=== PATIENT | female | born 1935 | race Caucasian/White ===

== ENCOUNTER 2016-12-30 08:08 | Day surgery (SDC) | payer MEDICARE, BC ==
[~2016-12-30 08:08] MED LIST: Buffered Lidocaine 0.9% SYRIN* 5 ML/SYR SYRINGE INTRADERM ONE
[2016-12-30] MEDS ORDERED: fentaNYL* 50 MCG/ML 2 ML VIAL (100 MCG VIAL) ONE (08:56)
[2016-12-30] MEDS ORDERED: Propofol* 10 MG/ML 20 ML BTL IV PUSH ONE (08:57)
[2016-12-30] MEDS ORDERED: Midazolam* 1 MG/ML 2 ML VIAL (2 MG) ONE (08:57)
[2016-12-30] MEDS ORDERED: Bupivacaine 0.25% SDV* 30 ML ONE (09:49)
[2016-12-30 11:06] VITALS: BP 123/76
--- NOTE | 2016-12-31 07:33 | OP ---
DATE OF OPERATION: 12/30/16 - [facility] DATE OF : 35 SURGEON: Gwyn Moeller MD PRICER BAGGER: INGA Donnelly ANESTHESIOLOGIST: Dr. Roland. ANESTHESIA: Local MAC PRE-OP DIAGNOSIS: Left carpal tunnel syndrome. POST-OP DIAGNOSIS: Left carpal tunnel syndrome. OPERATIVE PROCEDURE: Left open carpal tunnel release. INDICATIONS: Katie is an 81-year-old female with severe left carpal tunnel disease including severe atrophy. She has been to the point where she was having difficulty holding objects due to the loss of sensation. She was frequently dropping things. We had talked about risks and benefits. She wanted to proceed with left carpal tunnel release. She understands that she is likely to have incomplete recovery of the sensation and will probably have some increased burning and tingling initially. She also understands, she is unlikely to have reversal of the atrophy. ESTIMATED BLOOD LOSS: 2 mL. COMPLICATIONS: None. FINDINGS: As expected, severely flattened median nerve just at the level of the wrist flexion crease. DESCRIPTION OF PROCEDURE: Katie was seen in the preoperative holding area. The correct side, site, and procedure were identified. We came back to the operating room where she got some anesthesia, we had a timeout and I infiltrated the operative area with 0.25% plain Marcaine. I then prepped and draped the arm in the usual fashion and formal timeout was performed. I began by making 2 to 3 cm incision in standard location for an open carpal tunnel release. Dissection was carried down through subcutaneous tissue and the palmar fascia to expose the transverse carpal ligament. This was released from distal to proximal just off the radial aspect of the hook of the hamate. When I got to the wrist flexion crease, I released the subcutaneous tissue and placed a Belle retractor to retract this volarly and ulnarly. I then used the tenotomy scissors to release the remainder of the transverse carpal ligament and the distal antebrachial fascia just off the ulnar aspect of the palmaris longus tendon to a level of several centimeters proximal to the wrist flexion crease. I then released some more palmar fascia distally. Once there was absolutely no compression on the nerve, I went ahead and irrigated out the wound and skin was closed with 4-0 suture. Wound was dressed with Xeroform, 4x4s, sterile Webril, and an Sonido bandage. The tourniquet was deflated. The hand pinked up immediately. The arm had been exsanguinated with Esmarch and the tourniquet inflated to 250 mmHg prior to making skin incision. She was then taken to recovery room in stable condition. [id number]/[facility] #: [id number] [place]
== END 2016-12-30 11:08 | disposition home or self-care (01) ==
LOC: OREAST 08:08
PROVIDERS: ATTEND Orthopaedic Surgery Hand Surgery
DX: G56.02 Carpal tunnel syndrome, left upper limb (principal); Z79.82 Long term (current) use of aspirin; Z88.1 Allergy status to other antibiotic agents; Z88.0 Allergy status to penicillin; I10 Essential (primary) hypertension; J45.909 Unspecified asthma, uncomplicated
CPT/HCPCS: J2250; J2704; J3010

== ENCOUNTER 2019-01-05 08:16 | Emergency (ER) | payer MEDICARE, BC ==
--- OUTSIDE RECORDS SUMMARY | 2019-01-05 08:28 | XMS REPORT | Continuity of Care Document ---
:1935 External Reference #:[id number] Author Name JENNIFER Callaway Address [address] [place] [address] Care Team Providers Name Role Phone Rossana Rivas D.K., M.D. Care Team Information Directional Survey Drafter Unavailable Kylah Vizcarra MD Primary Care Physician Unavailable Payers Date Identification Numbers Payment Provider Subscriber Effective: Policy Number: [id number] Medicare-National Katie Gerber 2002 GVT.Sys PayID: [id number] [address] [place] [address] Effective: 2006 Policy Number: [facility] Katie Gerber [id number] Group Number: [id number] [address] Group Name: [place] [address] PayID: [id number] Problems Active Problems Provider Date Allergic asthma without status asthmaticus Rossana Rivas M.D. Onset: 2013 Allergic rhinitis due to pollen Rossana Rivas M.D. Onset: 07/18/2013 Allergic rhinitis Rossana Rivas M.D. Onset: 07/18/2013 Atopic dermatitis Rossana Rivas M.D. Onset: 07/18/2013 Toxic effect of venom Rossana Rivas M.D. Onset: 07/18/2013 Uncomplicated moderate persistent asthma Rossana Rivas M.D. Onset: 2014 Uncomplicated moderate persistent asthma JENNIFER Callaway Onset: 2016 Toxic effect of venom of bees, accidental JENNIFER Callaway Onset: 01/03 (unintentional), subsequent encounter Family History Date Family Member(s) Observation Comments General Seasonal Allergies General Bronchitis General Heart Disease General Hypertension General Nasal Polyps General sinus disorders Father Seasonal Allergies Father Bronchitis Father Heart Disease Father Nasal Polyps Father Sinus Disorders Mother Hypertension First Sister Seasonal Allergies Social History Type Date Description Comments Sex Unknown Marital Status Legal Status: Lives With Alone Home Environment Uses air beaming inspector Home Environment Has a window air conditioner Home Environment Stairs are present Home Environment Unfinished Basement Home Environment The basement is damp Home Environment Cotton Comforter Home Environment Regular Mattress Home Environment Mattress is 5 years old Home Environment Mattress is encased in an allergy proof case Home Environment Pillows are encased in an allergy proof case Home Environment Pillows are polyester Home Environment Does not use a has a yoruba drain dehumidifier Home Environment There are draperies in the home Home Environment The home is minoo Home Environment The floors are wood in [place], area rug Home Environment The floors are carpeted Home Environment Uses oil heating Home Environment Uses wood heating Home Environment [place] Home Environment Water Source: Well Smoke-Free Home is smoke-free Smoke-Free Work is smoke-free Pets 2 dogs Present 9 years and 2 years, allowed in [place] Pets Bird Pets Horse 2 at the house, some in [place] Pets Animals sleep in bedroom 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 2units Janice 12/31/2016 0.3mg/0.3ML im. JENNIFER Johnson Solution Auto-Inject Xopenex HFA 2 inhalations 1units J30.1 Janice 08/08/2013 45mcg/Act every 4 to 6 hours Uldrich, SOLAR SALES REPRESENTATIVE AND ASSESSOR-C Aerosol as needed, or 30 min prior to exercise. use with spacer Symbicort inhale two puffs 30.6gm J45.40 Janice 08/08/2013 by mouth every Uldrich, SOLAR SALES REPRESENTATIVE AND ASSESSOR-C 160-4.5mcg/Act morning and 2 Aerosol puffs at night - rinse mouth well after use Optichamber Advantage use with all 1units J45.40 Rossana Rivas, 07/18/2013 inhalers [facility] [place] apply topically 1units J45.40 Janice 07/18/2013 0.03% Ointment two times a day to Uldrich, SOLAR SALES REPRESENTATIVE AND ASSESSOR-C affected areas of eyelids Optivar instill 1-2 drops 18ml Janice 0.05% Solution every 12 hours in Uldrich, SOLAR SALES REPRESENTATIVE AND ASSESSOR-C each eye Coenzyme Q10 one tab daily Unknown 200mg Capsules Metoprolol Succinate twice daily Unknown ER 25mg Tablets ER 24HR Osteo Bi-Flex 1 po qd Unknown Advanced Triple Strength Tablets Franci-C 1 po qd Unknown 1000mg Tablets Calcium 500/Vitamin 1 po qd Unknown D3 [id number] Tablets B Complex 1 po qd Unknown Capsules Centrum Silver 1 po qd Unknown Tablets Fish Oil Concentrate one by mouth 2 Unknown times a day 1400mg Capsules Immodium Unknown Cholestyramine 1 po qd Unknown 4gm Packet Amlodipine Besylate 1 po qd Unknown 5mg Tablets Aspirin 1 po qd Unknown 81mg Tablets DR Lipitor 1 po qd Unknown 20mg Tablets Zoloft 1 po qd Unknown 50mg Tablets Zovirax aaa prn for Unknown 5% Cream shingles or herpes outbreak Nasonex spray two sprays 17units Janice 50mcg/Act in each nostril Uldrich, SOLAR SALES REPRESENTATIVE AND ASSESSOR-C Suspension every day Jannet Allergy 1 po qd 30tabs Unknown 180mg Tablets Immunizations CPT Code Status Date Vaccine Lot # 48381 Given 04/10/2014 Influenza Vaccine 49624 Given Unknown Pneumococcal Vaccine 23911 Given Unknown Influenza Vaccine 32781 Given Unknown Influenza Vaccine 98768 Given Unknown Influenza Vaccine 66919 Given Unknown Influenza Vaccine Vital Signs Date Vital Result Comment 12/18/2018 10:21am Height 63 inches 5'3" Weight 138.00 lb Weight 62.597 kg Respiratory Rate 16 /min Heart Rate 86 /min O2 % BldC Oximetry 98 % BP Systolic 147 mmHg BP Diastolic 103 mmHg Asthma Control Test 14 BMI (Body Mass Index) 24.4 kg/m2 06/23/2018 10:27am Height 63 inches 5'3" Weight 140.00 lb Weight 63.504 kg Respiratory Rate 21 /min Heart Rate 55 /min O2 % BldC Oximetry 97 % BP Systolic 128 mmHg BP Diastolic 75 mmHg Asthma Control Test 21 Fractional Exhaled Nitric Oxide 17 BMI (Body Mass Index) 24.8 kg/m2 12/15/2017 1:21pm Height 63 inches 5'3" Weight 136.00 lb Weight 61.690 kg Respiratory Rate 18 /min Heart Rate 62 /min O2 % BldC Oximetry 98 % BP Systolic 135 mmHg BP Diastolic 79 mmHg Asthma Control Test 23 BMI (Body Mass Index) 24.1 kg/m2 07/14/2017 1:33pm Height 63 inches 5'3" Weight 136.00 lb Weight 61.690 kg Respiratory Rate 18 /min Heart Rate 68 /min O2 % BldC Oximetry 99 % BP Systolic 147 mmHg BP Diastolic 86 mmHg BMI (Body Mass Index) 24.1 kg/m2 01/03/2017 12:01pm Height 63 inches 5'3" Weight 136.00 lb Weight 61.690 kg Respiratory Rate 20 /min Heart Rate 72 /min O2 % BldC Oximetry 97 % BP Systolic 131 mmHg BP Diastolic 64 mmHg Asthma Control Test 20 BMI (Body Mass Index) 24.1 kg/m2 06/14/2016 10:28am Height 63 inches 5'3" Weight 135.00 lb Weight 61.236 kg Respiratory Rate 18 /min Heart Rate 59 /min O2 % BldC Oximetry 98 % BP Systolic 144 mmHg BP Diastolic 76 mmHg Asthma Control Test 16 BMI (Body Mass Index) 23.9 kg/m2 04/12/2016 8:39am Height 63 inches 5'3" Weight 137.00 lb Weight 62.143 kg Respiratory Rate 16 /min Heart Rate 57 /min O2 % BldC Oximetry 98 % BP Systolic 121 mmHg BP Diastolic 63 mmHg Asthma Control Test 19 BMI (Body Mass Index) 24.3 kg/m2 12/31/2015 11:31am Height 63 inches 5'3" Weight 132.00 lb Weight 59.875 kg Respiratory Rate 16 /min Heart Rate 58 /min O2 % BldC Oximetry 97 % BP Systolic 123 mmHg BP Diastolic 70 mmHg Asthma Control Test 17 BMI (Body Mass Index) 23.4 kg/m2 05/28/2015 11:43am Height 63 inches 5'3" Weight 129.00 lb Weight 58.514 kg Respiratory Rate 20 /min Heart Rate 61 /min O2 % BldC Oximetry 98 % BP Systolic 131 mmHg BP Diastolic 71 mmHg Asthma Control Test 23 BMI (Body Mass Index) 22.8 kg/m2 11/27/2014 11:34am Height 63 inches 5'3" Weight 125.00 lb Weight 56.700 kg Respiratory Rate 18 /min Heart Rate 61 /min O2 % BldC Oximetry 98 % BP Systolic 120 mmHg BP Diastolic 76 mmHg Asthma Control Test 20 BMI (Body Mass Index) 22.1 kg/m2 05/29/2014 3:09pm Height 63 inches 5'3" Weight 124.00 lb Weight 56.246 kg Respiratory Rate 18 /min Heart Rate 74 /min O2 % BldC Oximetry 98 % BP Systolic 120 mmHg BP Diastolic 80 mmHg Asthma Control Test 23 BMI (Body Mass Index) 22.0 kg/m2 12/07/2013 1:37pm Height 63 inches Weight 131.00 lb Weight 59.422 kg Respiratory Rate 14 /min Heart Rate 64 /min O2 % BldC Oximetry 98 % BP Systolic 114 mmHg BP Diastolic 69 mmHg Asthma Control Test 20 BMI (Body Mass Index) 23.2 kg/m2 11/26/2013 1:50pm Height 63 inches 5'3" Weight 131.00 lb Weight 59.422 kg Respiratory Rate 16 /min Heart Rate 61 /min O2 % BldC Oximetry 98 % BP Systolic 126 mmHg BP Diastolic 70 mmHg Asthma Control Test 20 BMI (Body Mass Index) 23.2 kg/m2 08/08/2013 2:51pm Height 63 inches 5'3" Weight 131.00 lb Weight 59.422 kg Respiratory Rate 16 /min Heart Rate 71 /min O2 % BldC Oximetry 97 % BP Systolic 130 mmHg BP Diastolic 82 mmHg Asthma Control Test 20 BMI (Body Mass Index) 23.2 kg/m2 07/18/2013 1:30pm Height 63 inches 5'3" Weight 131.00 lb Weight 59.422 kg Respiratory Rate 14 /min Heart Rate 72 /min O2 % BldC Oximetry 98 % BP Systolic 149 mmHg BP Diastolic 86 mmHg BMI (Body Mass Index) 23.2 kg/m2 Procedures Date Code Description Status 12/18/2018 19787 Pre PFT Completed 06/23/2018 63047 Nitric Oxide Gas Determination Completed 06/23/2018 84738 Pre PFT Completed 12/15/2017 41417 Pre PFT Completed 07/14/2017 38908 Pre PFT Completed 01/03/2017 54700 Pre PFT Completed 06/14/2016 74548 Pre PFT Completed 04/12/2016 60656 Pulmonary Function Test Completed 12/31/2015 22644 Pre PFT Completed 05/28/2015 20476 Pre PFT Completed 11/27/2014 28722 Pulmonary Function Test Completed 05/29/2014 22149 Pre PFT Completed 12/07/2013 28606 Pre PFT Completed 07/18/2013 52014 Pulmonary Function Test Completed Encounters Type Date Location Provider Dx Diagnosis Office Visit 12/18/2018 Alberto Santos45.40 Moderate persistent 10:00a SOLAR SALES REPRESENTATIVE AND ASSESSOR-C asthma, uncomplicated J30.2 Other seasonal allergic rhinitis J30.89 Other allergic rhinitis Office Visit 06/23/2018 10:20a Alberto Santos45.40 Moderate persistent SOLAR SALES REPRESENTATIVE AND ASSESSOR-C asthma, uncomplicated J30.2 Other seasonal allergic rhinitis J30.89 Other allergic rhinitis 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, accidental, subs J30.1 Allergic rhinitis due to pollen Office Visit 12/15/2017 1:20p Alberto Santos45.40 Moderate persistent SOLAR SALES REPRESENTATIVE AND ASSESSOR-C asthma, uncomplicated J30.2 Other seasonal allergic rhinitis J30.89 Other allergic rhinitis 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, accidental, subs Office Visit 07/14/2017 1:40p Alberto Santos45.40 Moderate persistent SOLAR SALES REPRESENTATIVE AND ASSESSOR-C asthma, uncomplicated J30.1 Allergic rhinitis due to pollen J30.2 Other seasonal allergic rhinitis J30.89 Other allergic rhinitis 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, accidental, subs B37.9 Candidiasis, unspecified Office Visit 01/03/2017 11:40a [place] Johnson, J45.40 Moderate persistent SOLAR SALES REPRESENTATIVE AND ASSESSOR-C asthma, uncomplicated J30.1 Allergic rhinitis due to pollen J30.2 Other seasonal allergic rhinitis J30.89 Other allergic rhinitis 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, accidental, subs Z68.24 Body mass index (BMI) 24.0-24.9, adult Office Visit 06/14/2016 10:00a [place] Reyes J45.40 Moderate persistent SOLAR SALES REPRESENTATIVE AND ASSESSOR-C asthma, uncomplicated J30.1 Allergic rhinitis due to pollen J30.2 Other seasonal allergic rhinitis J30.89 Other allergic rhinitis Z68.23 Body mass index (BMI) 23.0-23.9, adult Office Visit 04/12/2016 9:00a [place] Vega Erasmo, Z68.24 Body mass index (BMI) RPA-C 24.0-24.9, adult J45.40 Moderate persistent asthma, uncomplicated J30.1 Allergic rhinitis due to pollen J30.2 Other seasonal allergic rhinitis J30.89 Other allergic rhinitis Z23 Encounter for immunization Office Visit 12/31/2015 11:40a [place] Rivera J45.40 Moderate persistent M.D. asthma, uncomplicated J30.1 Allergic rhinitis due to pollen J30.2 Other seasonal allergic rhinitis J30.89 Other allergic rhinitis Z68.23 Body mass index (BMI) 23.0-23.9, adult Z23 Encounter for immunization Office Visit 05/28/2015 11:20a Alberto Esqueda45.40 Moderate persistent M.D. asthma, uncomplicated J30.1 Allergic rhinitis due to pollen J30.2 Other seasonal allergic rhinitis J30.89 Other allergic rhinitis Z23 Encounter for immunization Z68.22 Body mass index (BMI) 22.0-22.9, adult Office Visit 11/27/2014 11:40a Rico Rivas M.D. 493.00 Asthma Extrinsic Unspecified 477.0 Rhinitis Allergic Due To Pollen 477.8 Rhinitis Allergic Due To Other Allergen 989.5 Toxic Effect Of Venom V03.82 Streptococcus Pneumoniae Vaccination Spec Other V85.1 Body Mass Index Between 19-24 Adult Office Visit 05/29/2014 3:20p Rico Rivas M.D. 493.00 Asthma Extrinsic Unspecified 477.0 Rhinitis Allergic Due To Pollen 477.8 Rhinitis Allergic Due To Other Allergen 989.5 Toxic Effect Of Venom Office Visit 11/26/2013 1:40p [place] Zimmerman, 477.0 Rhinitis Allergic Due RPA-C To Pollen 477.8 Rhinitis Allergic Due To Other Allergen 493.00 Asthma Extrinsic Unspecified 691.8 Dermatitis Atopic & Related Conditions Other 989.5 Toxic Effect Of Venom Office Visit 08/08/2013 3:00p Rico Chapin, 477.0 Rhinitis Allergic SOLAR SALES REPRESENTATIVE AND ASSESSOR-C Due To Pollen 493.00 Asthma Extrinsic Unspecified Office Visit 07/18/2013 1:20p Rico Rivas M.D. 493.00 Asthma Extrinsic Unspecified 477.0 Rhinitis Allergic Due To Pollen 477.8 Rhinitis Allergic Due To Other Allergen 691.8 Dermatitis Atopic & Related Conditions Other 989.5 Toxic Effect Of Venom Plan of Treatment Future Appointment(s):06/22/2019 10:00 am - JENNIFER Callaway at [id number] - KATHY Callaway-CJ45.40 Moderate persistent asthma, hyykqmrthzyspS88.2 Other seasonal allergic wxjxdgqlX43.89 Other allergic rhinitisRecommendations:Continue all medications as prescribed.Refrain from wearing perfumes/scented colognes while visitingour office. Continue the Symbicort 1 puff twice a day Continue the Jannet 1 daily, May re dose Continue the Nasonex 2 sprays each nostril daily Continue the Xopenex 2 puffs every 4 hours as needed for cough, shortness of breath, wheezing and chest congestion.Monitor Albuterol use. If using more than 2x/week, please call the office as your asthma medications may need to be adjusted. PFT done today. Pulmonary Function Studies are done by exhaling (blowing) into a machine to detect an asthmatic condition or other lung problem. Results reviewed and are normal.
--- OUTSIDE RECORDS SUMMARY | 2019-01-05 08:28 | XMS REPORT | Continuity of Care Document ---
:1935 External Reference #:[id number] Author Name Jermaine Iverson M.D. Address [address] [place] [address] Care Team Providers Name Role Phone Rossana Rivas D.K., M.D. Care Team Information After School Counselor Unavailable Kylah Vizcarra MD Primary Care Physician Unavailable Payers Date Identification Numbers Payment Provider Subscriber Effective: Policy Number: [id number] Medicare-National Katie Gerber 2002 GVT.Sys PayID: [id number] [address] [place] [address] Effective: 2006 Policy Number: [facility] Katie Gerber [id number] Group Number: [id number] [address] Group Name: [place] [address] PayID: [id number] Problems Active Problems Provider Date Allergic asthma without status asthmaticus Rossana Rvias M.D. 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 2units Janice 12/31/2016 0.3mg/0.3ML im. JENNIFER Johnson Solution Auto-Inject Xopenex HFA 2 inhalations 1units J30.1 Janice 08/08/2013 45mcg/Act every 4 to 6 hours [place], [employer] Aerosol as needed, or 30 min prior to exercise. use with spacer Symbicort inhale two puffs 30.6gm J45.40 Janice 08/08/2013 by mouth every [place], [employer] 160-4.5mcg/Act morning and 2 Aerosol puffs at night - rinse mouth well after use Optichamber Advantage use with all 1units J45.40 Rossana Rivas, 07/18/2013 inhalers Whit [facility] Protopic apply topically 1units J45.40 Janice 07/18/2013 0.03% Ointment two times a day to [place], [employer] affected areas of eyelids Optivar instill 1-2 drops 18ml Janice 0.05% Solution every 12 hours in [place], [employer] each eye Coenzyme Q10 one tab daily Unknown 200mg Capsules Metoprolol Succinate twice daily Unknown ER 25mg Tablets ER 24HR Osteo Bi-Flex 1 po qd Unknown Advanced Triple Strength Tablets Franci-C 1 po qd Unknown 1000mg Tablets Calcium 500/Vitamin 1 po qd Unknown D3 [id number] Tablets B Complex 1 po qd Unknown [...] 17units Janice 50mcg/Act in each nostril [place], [employer] Suspension every day Jannet Allergy 1 po qd 30tabs Unknown 180mg Tablets Immunizations CPT Code Status Date Vaccine Lot # 85427 Given 04/10/2014 Influenza Vaccine 89883 Given Unknown Pneumococcal Vaccine 28256 Given Unknown Influenza Vaccine 84803 Given Unknown Influenza Vaccine 14377 Given Unknown Influenza Vaccine 63282 Given Unknown Influenza Vaccine Vital Signs Date [...] kg/m2 Procedures Date Code Description Status 12/18/2018 53991 Pre PFT Completed 06/23/2018 07025 Nitric Oxide Gas Determination Completed 06/23/2018 01356 Pre PFT Completed 12/15/2017 26998 Pre PFT Completed 07/14/2017 89297 Pre PFT Completed 01/03/2017 69837 Pre PFT Completed 06/14/2016 41215 Pre PFT Completed 04/12/2016 46835 Pulmonary Function Test Completed 12/31/2015 49104 Pre PFT Completed 05/28/2015 43162 Pre PFT Completed 11/27/2014 12628 Pulmonary Function Test Completed 05/29/2014 47183 Pre PFT Completed 12/07/2013 64116 Pre PFT Completed 07/18/2013 01137 Pulmonary Function Test Completed Encounters Type Date Location Provider Dx Diagnosis Office Visit 12/18/2018 Alberto Santos45.40 Moderate persistent 10:00a [employer] asthma, uncomplicated J30.2 Other seasonal allergic rhinitis J30.89 Other allergic rhinitis Office Visit 06/23/2018 10:20a Alberto Santos45.40 Moderate persistent [employer] asthma, uncomplicated J30.2 Other seasonal allergic rhinitis J30.89 Other allergic rhinitis 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, accidental, subs J30.1 Allergic rhinitis due to pollen Office Visit 12/15/2017 1:20p Alberto Santos45.40 Moderate persistent [employer] asthma, uncomplicated J30.2 Other seasonal allergic rhinitis J30.89 Other allergic rhinitis 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, accidental, subs Office Visit 07/14/2017 1:40p Alberto Santos45.40 Moderate persistent [employer] asthma, uncomplicated J30.1 Allergic rhinitis due to pollen J30.2 Other seasonal allergic rhinitis J30.89 Other allergic rhinitis 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, accidental, subs B37.9 Candidiasis, unspecified Office Visit 01/03/2017 11:40a [place] Johnson, J45.40 Moderate persistent [employer] asthma, uncomplicated J30.1 Allergic rhinitis due to pollen J30.2 Other seasonal allergic rhinitis J30.89 Other allergic rhinitis 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, accidental, subs Z68.24 Body mass index (BMI) 24.0-24.9, adult Office Visit 06/14/2016 10:00a Rico Reyes J45.40 Moderate persistent [employer] asthma, uncomplicated J30.1 Allergic rhinitis due to pollen J30.2 Other seasonal allergic rhinitis J30.89 Other allergic rhinitis Z68.23 Body mass index (BMI) 23.0-23.9, adult Office Visit 04/12/2016 9:00a [place] [facility] Vega Erasmo, Z68.24 Body mass index (BMI) RPA-C 24.0-24.9, adult J45.40 Moderate persistent asthma, uncomplicated J30.1 Allergic rhinitis due to pollen J30.2 Other seasonal allergic rhinitis J30.89 Other allergic rhinitis Z23 Encounter for immunization Office Visit 12/31/2015 11:40a [place] Rivera J45.40 Moderate persistent M.D. asthma, uncomplicated J30.1 Allergic rhinitis due to pollen J30.2 Other seasonal allergic rhinitis J30.89 Other allergic rhinitis Z68.23 Body mass index (BMI) 23.0-23.9, adult Z23 Encounter for immunization Office Visit 05/28/2015 11:20a Rico Rivas J45.40 Moderate persistent M.D. asthma, uncomplicated J30.1 [...] Between 19-24 Adult Office Visit 05/29/2014 3:20p Rioc Rivas M.D. 493.00 Asthma Extrinsic Unspecified 477.0 Rhinitis Allergic Due To Pollen 477.8 Rhinitis Allergic Due To Other Allergen 989.5 Toxic Effect Of Venom Office Visit 11/26/2013 1:40p [place] Alexa Zimmerman, 477.0 Rhinitis Allergic Due RPA-C To Pollen 477.8 Rhinitis Allergic Due To Other Allergen 493.00 Asthma Extrinsic Unspecified 691.8 Dermatitis Atopic & Related Conditions Other 989.5 Toxic Effect Of Venom Office Visit 08/08/2013 3:00p [facility] Chapin, 477.0 Rhinitis Allergic [employer]-C Due To Pollen 493.00 Asthma Extrinsic Unspecified Office Visit 07/18/2013 1:20p Rico Rivas M.D. 493.00 Asthma Extrinsic Unspecified 477.0 Rhinitis Allergic Due To Pollen 477.8 Rhinitis Allergic Due To Other Allergen 691.8 Dermatitis Atopic & Related Conditions Other 989.5 Toxic Effect Of Venom Plan of Treatment Future Appointment(s):06/22/2019 10:00 am - JENNIFER Callaway at [place]/2019 - KATHY Callaway-CJ45.40 Moderate persistent asthma, ssavpyvacjrnoQ76.2 Other seasonal allergic jwznhwhiO72.89 Other allergic rhinitisRecommendations:Continue all medications as prescribed.Refrain [...]
[2019-01-05 08:40] VITALS: BP 137/88
--- NOTE | 2019-01-05 09:24 | ED ---
Respiratory - HPI Summary HPI Summary: 83 yr old with sinus pressure, post nasal drip, coughing and onset of about 10 days ago. She is using her inhalers. She has had some moderate relief. She is having pain in ribs from coughing and worse with coughing. She denies fever and chills. She has no SOB. She did have sweats yesterday. - History of Current Complaint Chief Complaint: UCRespiratory Stated Complaint: COUGH,RIB PAIN,WEAKNESS Time Seen by Provider: 01/05/19 08:24 Pain Intensity: 3 - Allergy/Home Medications Allergies/Adverse Reactions: Allergies Allergy/AdvReac Type Severity Reaction Status Date / Time bee venom protein (honey bee) Allergy Swelling Verified 01/05/19 08:29 cephalexin Allergy Diarrhea Verified 01/05/19 08:29 Penicillins Allergy Hives Verified 01/05/19 08:29 PMH/Surg Hx/FS Hx/Imm Hx Endocrine/Hematology History: Denies: Hx Diabetes, Hx Thyroid Disease Cardiovascular History: Reports: Hx Hypertension - on med Denies: Hx Peripheral Vascular Disease Respiratory History: Reports: Hx Asthma - prn inhaler, Hx Seasonal Allergies GI History: Reports: Hx Gastroesophageal Reflux Disease - occassional with coffee or tomatoes, Other GI Disorders - diarrhea controlled with med History: Reports: Other Problems/Disorders - left nephrectomy Musculoskeletal History: Reports: Hx Arthritis - osteoarthritis, Other Musculoskeletal History - right knee and right hip replaced Denies: Hx Rheumatoid Arthritis, Hx Osteoporosis Sensory History: Reports: Hx Cataracts - surgery not needed yet, Hx Contacts or Glasses - glasses Denies: Hx Eye Injury, Hx Glaucoma, Hx Hearing Aid Opthamlomology History: Reports: Hx Cataracts - surgery not needed yet, Hx Contacts or Glasses - glasses Denies: Hx Eye Injury, Hx Glaucoma Neurological History: Denies: Hx Headaches, Hx Seizures, Hx Transient Ischemic Attacks (TIA) Psychiatric History: Reports: Hx Anxiety - ON MED, Hx Depression - ON MED - Cancer History Hx Chemotherapy: No Hx Radiation Therapy: No - Surgical History Surgery Procedure, Year, and Place: Left Nephrectomy 1999 - . right renal artery replaced with saphenous vein 1999. right knee replacement - 2013 [facility] [place]. right hip replacement - 2013 [facility] [place]. left carpal tunnel -01/2017 [facility] [place]. Right carpal tunnel Hx Anesthesia Reactions: No Infectious Disease History: No Infectious Disease History: Reports: Hx Shingles - right side on back (active) Denies: Hx Clostridium Difficile, Hx Hepatitis, Hx Human Immunodeficiency Virus (HIV), Hx of Known/Suspected MRSA, Hx Tuberculosis, Hx Known/Suspected VRE , Hx Known/Suspected VRSA, History Other Infectious Disease, Traveled Outside the [place] in Last 30 Days - Family History Known Family History: Positive: None - Social History Occupation: Retired Alcohol Use: None Substance Use Type: Reports: None Smoking Status (MU): Never Smoked Tobacco Review of Systems Constitutional: Negative Positive: Nasal Discharge Positive: Shortness Of Breath, Cough All Other Systems Reviewed And Are Negative: Yes Physical Exam Triage Information Reviewed: Yes Vital Signs On Initial Exam: Initial Vitals Temp Pulse Resp BP Pulse Ox 98.7 F 108 20 137/88 97 01/05/19 08:34 01/05/19 08:34 01/05/19 08:34 01/05/19 08:34 01/05/19 08:34 Vital Signs Reviewed: Yes Appearance: Positive: Well-Appearing, No Pain Distress Skin: Positive: Warm, Skin Color Reflects Adequate Perfusion Head/Face: Positive: Normal Head/Face Inspection Eyes: Positive: EOMI ENT: Positive: Pharynx normal, Nasal congestion, TMs normal, Sinus tenderness Neck: Positive: Nontender Respiratory/Lung Sounds: Positive: Clear to Auscultation, Breath Sounds Present Cardiovascular: Positive: RRR. Negative: Murmur Abdomen Description: Positive: Nontender Musculoskeletal: Positive: Strength/ROM Intact Neurological: Positive: Sensory/Motor Intact, Alert, Oriented to Person Place, Time, CN Intact II-III, Normal Gait, Speech Normal Psychiatric: Positive: Normal Diagnostics - Vital Signs Vital Signs Temp Pulse Resp BP Pulse Ox 01/05/19 08:34 98.7 F 108 20 137/88 97 - Laboratory Lab Statement: Any lab studies that have been ordered have been reviewed, and results considered in the medical decision making process. - Radiology chest pa lat Radiology Interpretation Completed By: Radiologist - nad Disposition - Course Course Of Treatment: sinusitis, and acute bronchitis. Rx with prednisone and doxy. - Diagnoses Provider Diagnoses: Sinusitis, Acute bronchitis, Hypertension Discharge - Sign-Out/Discharge Documenting (check all that apply): Patient Departure All imaging exams completed and their final reports reviewed: Yes - Discharge Plan Condition: Good Disposition: HOME Prescriptions: Doxycycline Monohydrate 100 mg PO BID #20 capsule predniSONE TAB* [Deltasone 20 MG TAB*] 40 mg PO DAILY #8 tab Patient Education Materials: Acute Bronchitis (ED), Sinusitis (ED), Hypertension (ED) Referrals: Kylah Vizcarra MD [Primary Care Provider] - 2 Days - Billing Disposition and Condition Condition: GOOD Disposition: Home
== END 2019-01-05 09:32 | disposition home or self-care (01) ==
LOC: UCCORT 08:16
DX: J32.9 Chronic sinusitis, unspecified (principal); J20.9 Acute bronchitis, unspecified; I10 Essential (primary) hypertension; Z88.0 Allergy status to penicillin; Z88.1 Allergy status to other antibiotic agents
CPT/HCPCS: 71046; 99212; G0463

== ENCOUNTER 2019-06-17 15:20 | Emergency (ER) | payer MEDICARE, BC ==
--- NOTE | 2019-06-17 16:03 | ED ---
Adult Trauma - HPI Summary HPI Summary: Pt here w/ Lt knee instability s/p falling prior to arrival. 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 When she went to stand, her lower leg was sliding on her upper leg and felt unstable. Denies numbness, tingling, weakness. Pain is tolerated in resting position however is worse w/ movement. Took an extra strength tylenol earlier today and is not due to take another yet so will refrain from additional tylenol at this time. Also reports she has poor kidneys and will refrain from ibuprofen. Does not want anything more for pain at this time - has ice pack in place which helps. No previous injury here however has h/o Rt knee and hip replacements w/ Dr. Bosch with which she is quite pleased. No other injuries as a result of fall today. - History of Current Complaint Chief Complaint: EDExtremityLower Stated Complaint: LT KNEE INJURY PER PT Time Seen by Provider: 06/17/19 15:44 Hx Obtained From: Patient Pain Intensity: 2 - Allergy/Home Medications Allergies/Adverse Reactions: Allergies Allergy/AdvReac Type Severity Reaction Status Date / Time bee venom protein (honey bee) Allergy Swelling Verified 01/05/19 08:29 cephalexin Allergy Diarrhea Verified 01/05/19 08:29 Penicillins Allergy Hives Verified 01/05/19 08:29 PMH/Surg Hx/FS Hx/Imm Hx Previously Healthy: Yes Endocrine/Hematology History: Denies: Hx Anticoagulant Therapy, Hx Diabetes, Hx Thyroid Disease Cardiovascular History: Reports: Hx Hypertension - on med Denies: Hx Peripheral Vascular Disease Respiratory History: Reports: Hx Asthma - prn inhaler, Hx Seasonal Allergies GI History: Reports: Hx Gastroesophageal Reflux Disease - occassional with coffee or tomatoes, Other GI Disorders - diarrhea controlled with med History: Reports: Other Problems/Disorders - left nephrectomy Musculoskeletal History: Reports: Hx Arthritis - osteoarthritis, Other Musculoskeletal History - right knee and right hip replaced Denies: Hx Rheumatoid Arthritis, Hx Osteoporosis Sensory History: Reports: Hx Cataracts - surgery not needed yet, Hx Contacts or Glasses - glasses Denies: Hx Eye Injury, Hx Glaucoma Opthamlomology History: Reports: Hx Cataracts - surgery not needed yet, Hx Contacts or Glasses - glasses Denies: Hx Eye Injury, Hx Glaucoma Neurological History: Denies: Hx Headaches, Hx Seizures, Hx Transient Ischemic Attacks (TIA) Psychiatric History: Reports: Hx Anxiety - ON MED, Hx Depression - ON MED - Cancer History Hx Chemotherapy: No Hx Radiation Therapy: No - Surgical History Surgery Procedure, Year, and Place: Left Nephrectomy 1999. right renal artery replaced with saphenous vein 1999. right knee replacement - 2013 [facility] [place]. right hip replacement - 2013 [facility] [place]. left carpal tunnel -01/2017 [facility] [place]. 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 [employer] Lives: Alone - with her animals, a friend lives [address] and is very helpful Alcohol Use: None Hx Substance Use: No Substance Use Type: Reports: None Hx Tobacco Use: No Smoking Status (MU): Never Smoked Tobacco Review of Systems Negative: Fatigue Eyes: Negative ENT: Negative Negative: Chest Pain Negative: Shortness Of Breath Negative: Abdominal Pain, Nausea Positive: no symptoms reported Musculoskeletal: Other - as in HPI Skin: Negative Neurological: Negative Psychological: Normal All Other Systems Reviewed And Are Negative: Yes Physical Exam Triage Information Reviewed: Yes Vital Signs On Initial Exam: Initial Vitals Temp Pulse Resp BP Pulse Ox 98.3 F 110 16 157/104 94 06/17/19 15:21 06/17/19 15:21 06/17/19 15:21 06/17/19 15:21 06/17/19 15:21 Vital Signs Reviewed: Yes Appearance: Positive: Well-Appearing, No Pain Distress, Well-Nourished Skin: Positive: Warm, Skin Color Reflects Adequate Perfusion, Dry - no ecchymosis, no erythema over affected knee however pt has ice in place since time of injury and in splint immediately after injury Head/Face: Positive: Normal Head/Face Inspection Eyes: Positive: EOMI ENT: Positive: Hearing grossly normal Respiratory/Lung Sounds: Positive: Breath Sounds Present Cardiovascular: Positive: Pulses are Symmetrical in both Upper and Lower Extremities. Negative: Leg Edema Left, Leg Edema Right Musculoskeletal: Positive: Strength/ROM Intact - Rt LE w/o pain or restriction w / ROM, Limited @ - Can move toes/ankle and knee in anterior/posterior range w/ closed chain flexion/extension but laxity with medial/lateral movements, TTP along lateral aspect of knee - rotational movements were not performed to reduce inducing unnecessary pain Neurological: Positive: Sensory/Motor Intact, Alert, Oriented to Person Place, Time, CN Intact II-III Psychiatric: Positive: Normal - in good spirits, friend is w/ her - chatting and pt reports she will sleep good tonight after a full day of skiing! - Asha Coma Scale Best Eye Response: 4 - Spontaneous Best Motor Response: 6 - Obeys Commands Best Verbal Response: 5 - Oriented Coma Scale Total: 15 Procedures - Sedation Patient Received Moderate/Deep Sedation with Procedure: No Diagnostics - Vital Signs Vital Signs Temp Pulse Resp BP Pulse Ox 06/17/19 15:21 98.3 F 110 16 157/104 94 - Laboratory Lab Statement: Any lab studies that have been ordered have been reviewed, and results considered in the medical decision making process. Adult Trauma Course/Dx - Course Course Of Treatment: XR - no fx, no dislocation, no effusion. Pt d/c'd w/ knee immobilizer and crutches - pt's friend will help her as needed w/ ADL's however pt is a very active/fit/independent 83 y.o. She declines additional pain medication for her or for home and will f/u w/ Dr. Bosch. - Diagnoses Provider Diagnoses: Sprain of left knee Discharge ED - Sign-Out/Discharge Documenting (check all that apply): Patient Departure - Discharge Plan Condition: Stable Disposition: HOME Patient Education Materials: Knee Sprain (ED), Crutch Instructions (ED), Knee Immobilizer (ED) Referrals: Dari Bosch MD [Medical Doctor] - Additional Instructions: Rest, ice, elevate and keep immobilizer in place at all times. May take extra strength Tylenol every 6 hours as needed for pain Use crutches to assist with ambulation and avoid weightbearing until cleared by orthopedics. Be sure to with earlier toes and ankles to avoid blood pooling anterior leg Call Dr. Bosch's office tomorrow to schedule an appointment. *If in the meantime you develop numbness, tingling or weakness, elevate leg and remove immobilizer - if symptoms persist after 20 minutes, immobilizer back in place return to the emergency department. - Billing Disposition and Condition Condition: STABLE Disposition: Home
[2019-06-17 17:23] VITALS: BP 141/108
== END 2019-06-17 17:20 | disposition home or self-care (01) ==
LOC: ED 15:20
DX: S83.92XA Sprain of unspecified site of left knee, initial encounter (principal); V00.321A Fall from snow-skis, initial encounter; Y93.89 Activity, other specified; Y92.838 Other recreation area as the place of occurrence of the external cause; Y99.0 Civilian activity done for income or pay; I10 Essential (primary) hypertension; J45.909 Unspecified asthma, uncomplicated; K21.9 Gastro-esophageal reflux disease without esophagitis; F41.9 Anxiety disorder, unspecified; F32.9 Major depressive disorder, single episode, unspecified; Z96.651 Presence of right artificial knee joint; Z96.641 Presence of right artificial hip joint; Z88.0 Allergy status to penicillin; Z88.1 Allergy status to other antibiotic agents; Z91.030 Bee allergy status
CPT/HCPCS: 99282

== ENCOUNTER → 2019-07-26 05:49 | Day surgery (SDC) | payer OTHER ==
--- NOTE | 2019-07-12 03:52 | HP ---
HISTORY AND PHYSICAL: DATE OF ADMISSION: 07/26/19 PROVIDER: Dr. Dari Bosch.* (DICTATED BY INGA SCHWAB) HISTORY OF PRESENT ILLNESS: The patient is an 84-year-old female who had a new complaint of left knee pain on 06/17/19. 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 She reports she twisted the knee and has had 2-4/10 pain in the left knee along the medial joint line and lateral joint line. She has had trouble with pivoting, twisting, or deep bending of her knee. Bearing weight does cause some pain. An MRI was obtained and showed a degenerative horizontal tear of the posterior horn of the medial meniscus without displacement. It also showed an anterior root lateral meniscus tear with anterior horn and body of the lateral meniscus flips and approximating the posterior horn. She would like to proceed with arthroscopic surgery and partial meniscectomy. PAST MEDICAL HISTORY: 1. Asthma and allergies. 2. Anxiety. 3. Osteoarthritis. 4. Hypertension. 5. Hypercholesterolemia. PAST SURGICAL HISTORY: 1. Right total knee arthroplasty. 2. Right hip hemiarthroplasty. 3. Left kidney infarction with removal. 4. Left saphenous vein harvesting with grafting on to the right kidney. 5. Bilateral cataract surgery. MEDICATIONS: 1. Amlodipine 5 mg. 2. Aspirin 81 mg. 3. B complex 150. 4. Centrum. 5. Cholestyramine. 6. EpiPen as needed. 7. Franci-C. 8. Fexofenadine hydrochloric acid 180 mg. 9. Fish oil. 10. Glucosamine and chondroitin. 11. Imodium half a tab. 12. Lipitor 10 mg. 13. Nasonex as directed. 14. Ocuvite 1 p.o. daily. 15. Osteo Bi-Flex Advanced. 16. Probiotic. 17. Protopic. 18. Sertraline 100 mg. 19. Symbicort. 20. Xopenex. ALLERGIES: 1. PENICILLIN causes hives. 2. KEFLEX causes diarrhea. SOCIAL HISTORY: The patient lives alone and on her own with 2 dogs. She has a good support system. 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 She denies any drinking, smoking, or illicit drug use. REVIEW OF SYSTEMS: General: The patient denies any fevers, chills, or night sweats. No known anesthesia problems. HEENT: The patient denies any headaches , lightheadedness, or syncopal episodes. Cardiothoracic: The patient denies any chest pain, heart palpitations, or edema. Pulmonary: The patient denies any shortness of breath with exertion and chronic cough. GI: The patient denies any nausea, vomiting, diarrhea, or constipation. : The patient denies any nocturia, urinary frequency, or urgency. MSK: The patient denies any chronic or intermittent back pain or fractures. Neuro: The patient denies any paresthesias, numbness, seizures, or stroke. Integument: The patient denies any abrasions, lesions, rashes, lumps, or open sores. PHYSICAL EXAMINATION GENERAL: The patient is alert and oriented x3 with appropriate mood and affect , appropriately dressed and hygiene. HEENT: Normocephalic, atraumatic. Hearing and vision are grossly intact. PULMONARY: Lungs are clear to auscultation bilaterally. No wheezes, rales, or rhonchi. CARDIO: Regular rate and rhythm. Normal S1 and S2. No appreciable S3 or S4. No murmurs, rubs, or gallops. MSK: Left lower extremity: Inspection of the left knee reveals no erythema or ecchymosis. Skin is warm, dry, and intact. She has a moderate knee effusion at this time. She has tenderness along the MCL and LCL. Positive Apley's and Robert's test. Negative Cinthya's. Negative posterior drawer. She has 5 degrees shy of full extension to 100 degrees of flexion with pain. Active straight leg raise. She is neurovascularly intact distally and has a 2+ dorsalis pedis pulse. STUDIES: MRI of the left knee was reviewed today and shows a degenerative horizontal tear of the posterior horn of the medial meniscus without displacement and anterior root lateral meniscus tear with anterior horn and body of the lateral meniscus flips and approximating the posterior horn. ASSESSMENT: Left knee meniscus tears, displaced flap. PLAN: To the OR for a left knee arthroscopy with partial meniscectomy. The risks and complications of surgery were reviewed with the patient and she understood that. She will follow up in 10 to 14 days postop for suture removal. LILIANA RIDDLE, INGA [id number]/[facility] #: [id number] [place]
[~2019-07-26 05:49] MED LIST changes: -Buffered Lidocaine 0.9% SYRIN* 5 ML/SYR SYRINGE INTRADERM ONE; +Buffered Lidocaine 1% SYRIN* 1 ML/SYRINGE INTRADERM ONE; +Clindamycin 900 MG/D5W BAG(*) 900 MG/50 ML BAG IVPB ONE; +Dexamethasone IV* 4 MG/ML 1 ML (4 MG) ONE; +EPINEPHRINE 1 MG/ML 1 ML VIAL ONE; +Etomidate* 2 MG/ML 10 ML VIAL ONE; +HYDROmorphone INJ1* 1 MG/ML SYRINGE IV PRN; +HYDROmorphone INJ1* 1 MG/ML SYRINGE ONE; +Ketorolac INJ* 30 MG/ML 1 ML VIAL IV PRN; +Ketorolac INJ* 30 MG/ML 1 ML VIAL ONE; +Lactated Ringers 1000 ML Bag* 1,000 ML IV SCH; +Lidocaine 2% PF* 10 ML AMP ONE; +Naloxone* 0.4 MG/ML 1 ML VIAL IV PRN; +Ondansetron INJ* 2 MG/ML VIAL ONE; +Propofol* 10 MG/ML 20 ML BTL ONE; +ROPIVACAINE 5 MG/ML 30 ML BTL (0.5%) ONE; +methylPREDNISolone ACETATE 80* 80 MG/ML 1 ML VIAL ONE
[2019-07-26] MEDS: HYDROmorphone INJ1* 1 MG/ML SYRINGE IV PRN ×2 (08:44→08:54)
[2019-07-26 10:26] VITALS: BP 138/85
--- NOTE | 2019-07-27 04:01 | OP ---
DATE OF OPERATION: 07/26/19 - [facility] DATE OF : 35 ATTENDING SURGEON: Dari Bosch MD MANAGER STRATEGY & ACCOUNT: INGA Reyes. Mr. Michel did help throughout the procedure with preparation of the leg, wound retraction, manipulation of the knee, and wound closure. ANESTHESIOLOGIST: Dr. Bradford. ANESTHESIA: General. PRE-OP DIAGNOSIS: Left knee bucket handle tear of the lateral meniscus. POST-OP DIAGNOSES: 1. Left knee bucket handle tear of the lateral meniscus. 2. Parrot beak type tear in the medial meniscus. 3. Elmu-jp-[id number] osteoarthritis. OPERATIVE PROCEDURE: Left knee arthroscopy with partial lateral meniscectomy and partial medial meniscectomy. COMPLICATIONS: None. SPECIMEN: None. ESTIMATED BLOOD LOSS: Less than 25 cc. BRIEF HISTORY/INDICATIONS: Ms. 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 She presented to my clinic with a swollen left knee and she was unable to fully extend the knee. She had mechanical symptoms consistent with possible meniscal tear. MRI confirmed a displaced bucket handle type tear of the lateral meniscus. Due to continued pain and locked position of the knee without full extension, she elected to undergo left knee arthroscopy. She understood the risks of surgery included, but were not limited to, bleeding, infection, damage to nearby structures, continued pain, need for further surgery, retear of the meniscus, progression of arthritis, stroke, heart attack, blood clot, and . She wished to proceed. INTRAOPERATIVE FINDINGS: Intraoperatively, the patient had a bucket handle type tear of the lateral meniscus involving the white-red and red-red zone. This bucket handle tear was flipped anteriorly near the ACL and anterior joint line. The patient also had a parrot beak type tear in the posterior one-third of the medial meniscus mainly in the red-white zone. DESCRIPTION OF PROCEDURE: Ms. Gerber was identified in the preanesthesia unit. Her left lower extremity was marked as the correct operative site. Informed consent was signed and placed in the chart. The patient was taken to the operating room and placed under anesthesia without difficulty. Left lower extremity was prepped and draped in the usual sterile fashion. Preop time-out was made to correctly identify the patient, side, and site. Appropriate antibiotics were given within 1 hour of incision. A standard anterolateral portal incision was made with a 10 blade and carried down to the capsule. Trocar was introduced. As soon as the light and water sources were turned on, there was immediate visualization of the suprapatellar pouch. A tour of the knee joint was performed. Suprapatellar pouch had no obvious abnormality. Patellofemoral compartment had some grade 2 and 3 Outerbridge cartilage changes. Medial gutters showed no loose body or plica. Medial compartment showed a parrot beak type tear in the medial meniscus of the posterior third. This was mainly in white-red zone. Minimal degenerative changes were noted. ACL and PCL were intact. Large flipped fragment of the meniscus was in the anterolateral joint line. The knee was placed in a figure-of -four position. This bucket handle tear was displaced anteriorly and involved the white-red and red-red zone. Lateral gutters showed no loose body or plica. Under direct visualization, a medial portal incision was made. Shaver and radiofrequency ablation wand were used to remove some synovitis from the anterior joint line to improve visualization. Straight biter and shaver were used to perform partial medial meniscectomy in the white-red zone. The parrot beak type tear in the posteromedial medial meniscus was carefully excised. A smooth border of the meniscus was obtained. Further probing of the medial meniscus showed no additional tears. Next, the knee was placed in a [id number] position. There were grade 2 and 3 Outerbridge cartilage changes in the lateral compartment cartilage. The bucket handle type tear was reduced back towards the posterior joint line. Straight biter and shaver were used to perform partial lateral meniscectomy. A smooth border of the meniscus was obtained. This was in the white-red and red- red zone. Further probing of the lateral meniscus showed no additional tears. Radiofrequency ablation wand was used to further smooth the edge of the lateral meniscus. The knee was copiously irrigated with sterile saline. All instruments were removed. The incisions were closed using 3-0 nylon suture. Sterile Xeroform, 4 x 4s, and Webril were used to cover the incision. Sonido wrap and cold pack were placed over this. The patient's anesthesia was reversed without difficulty. She was taken to the PACU in stable condition. Intended weightbearing will be weightbearing as tolerated. Intended DVT prophylaxis will be aspirin. She will follow up in 2 weeks' time for suture removal. [id number]/[facility] #: [id number] [place]
== END | disposition home or self-care (01) ==
LOC: OR 05:49
PROVIDERS: ATTEND Orthopaedic Surgery Adult Reconstructive Orthopaedic Surgery
DX: S83.252A Bucket-handle tear of lateral meniscus, current injury, left knee, initial encounter (principal); S83.242A Other tear of medial meniscus, current injury, left knee, initial encounter; W01.0XXA Fall on same level from slipping, tripping and stumbling without subsequent striking against object, initial encounter; Y92.9 Unspecified place or not applicable; M17.12 Unilateral primary osteoarthritis, left knee; J45.909 Unspecified asthma, uncomplicated; I10 Essential (primary) hypertension; E78.00 Pure hypercholesterolemia, unspecified; F41.9 Anxiety disorder, unspecified; Z88.0 Allergy status to penicillin; I38 Endocarditis, valve unspecified; Z88.1 Allergy status to other antibiotic agents; Z90.5 Acquired absence of kidney; M19.90 Unspecified osteoarthritis, unspecified site; I48.91 Unspecified atrial fibrillation; E78.5 Hyperlipidemia, unspecified; I27.20 Pulmonary hypertension, unspecified
CPT/HCPCS: J1040; J1100; J1170; J1885; J2001; J2405; J2704; J2795